=== PATIENT | female | born 1985 | race Caucasian/White ===

== ENCOUNTER → 2016-08-29 | Outpatient (CLI) | payer OTHER ==
[~2016-08-29] MED LIST: BUPROPION HCL150 MG PO; BUSPAR 10MG10 MG PO; CELEXA20 MG PO; FENOFIBRATE160 MG PO; FLEXERIL 10 MG10 MG PO; LINZESS290 MCG PO; LODINE CAP 300300 MG PO; LOVENOX SY40 MG/0.4 SC; PERCOCET 7.5-31 EACH PO; VITAMIN D50000 UNIT PO; XYZAL5 MG PO
[2016-08-29 16:38] LABS: BUN/CREATININE RATIO 17 (0-10)
== END ==
LOC: LAB 15:43
PROVIDERS: Internal Medicine Pulmonary Disease
DX: E78.5 Hyperlipidemia, unspecified (principal); G47.11 Idiopathic hypersomnia with long sleep time
CPT/HCPCS: 36415; 80053; 80061

== ENCOUNTER → 2016-08-29 | Outpatient (CLI) | payer OTHER | LOC: LAB 15:34 | DX: Z02.1 Encounter for pre-employment examination (principal) | CPT/HCPCS: 86706; 86787 ==